=== PATIENT | male | born 1980 | race Two or more races ===

== ENCOUNTER 2023-06-08 19:02 | Emergency (ER) | payer OTHER ==
[~2023-06-08] VITALS: Ht 170.2 cm; Wt 154.2 kg
[2023-06-08] MEDS ORDERED: NAPROXEN500 MG PO (23:37)
== END 2023-06-08 23:52 | disposition home or self-care (01) ==
LOC: ER 19:02
PROVIDERS: General Practice
DX: K42.9 Umbilical hernia without obstruction or gangrene (principal); R10.33 Periumbilical pain; Z91.013 Allergy to seafood

== ENCOUNTER 2025-03-28 06:00 | Day surgery (SDC) | payer OTHER ==
[2025-03-22 09:45] VITALS: BP 127/82
[2025-03-22 10:28] LABS: BASO % 0.4 % (0.1-1.2); EOS # 0.22 (0.04-0.54); EOS % 2.5 % (0.7-7.0); LYMPH # 1.84 (1.18-3.74); LYMPH % 20.6 % (19.3-53.1); MEAN PLATELET VOLUME 9.30 fl (9.4-12.4); MONO # 0.74 (0.24-0.82); MONO % 8.3 % (4.7-12.5); NEUT # 6.06 (1.56-6.13); NEUT % 68.0 % (34.0-71.1); RED CELL DISTRIBUTION WIDTH 15.0 % (11.6-14.4)
[2025-03-22 10:52] LABS: INR 0.97
[2025-03-22 11:08] LABS: URINE APPEARANCE Clear; URINE BILIRRUBIN Negative (NEGATIVE); URINE BLOOD Negative; URINE COLOR Yellow; URINE GLUCOSE Negative (NEGATIVE); URINE KETONE Negative (NEGATIVE); URINE LEUKOCYTE Negative; URINE NITRATE Negative; URINE PROTEIN Negative (NEGATIVE); URINE UROBILINOGEN 0.2 E.U./dl
[2025-03-22 11:13] LABS: URINE BACTERIA 319.4 uL (0.0-1933); URINE EPITHELIAL CELLS 17.7 uL (0.0-38.8); URINE RBC 5.4 uL (0.0-20.8); URINE WBC 7.7 uL (0.0-23.2)
[2025-03-22 11:17] LABS: URINE CAST 0.44 uL (0.0-1.40)
[2025-03-22 11:35] LABS: ALT/SGPT 37.0 U/L (12-78); AST/SGOT 14.0 U/L (15-37); BILIRUBIN TOTAL 0.46 mg/dL (0.3-1.2); BUN CREA RATIO 16.0 (7.0-25.0); CREATININE SERUM 0.82 mg/dL (0.70-1.30); GFR 103.03; GLOBULINA 3.9 G/DL (2.4-3.5); GLUCOSE FASTING 105.0 mg/dL (65-100); OSMOLALITY SERUM 284.0 MOSM/KG (275-295)
[~2025-03-28] VITALS: Ht 171.4 cm; Wt 150.6 kg
[~2025-03-28 06:00] MED LIST: NAPROXEN500 MG PO
[2025-03-28] MEDS ORDERED: CEFAZOLIN SODIUM 1,000 MG VIAL IV ONE (15:45)
[2025-03-28] MEDS ORDERED: SUGAMMADEX SODIUM 200 MG/2 ML VIAL IV ONE (17:15)
[2025-03-28] MEDS ORDERED: MORPHINE SULFATE 4 MG/ML VIAL IV ONE (18:00)
== END 2025-03-28 19:00 | disposition home or self-care (01) ==
LOC: CIR.AMB 06:00
PROVIDERS: ATTEND Surgery
DX: K43.6 Other and unspecified ventral hernia with obstruction, without gangrene (principal); Z91.013 Allergy to seafood
CPT/HCPCS: 49594; C1781